=== PATIENT | female | born 1945 | race Caucasian/White ===

== ENCOUNTER 2019-06-20 10:30 | Inpatient (IN) | payer MEDICARE, MEDICAID ==
[~2019-06-20] VITALS: Ht 142.2 cm; Wt 97.8 kg
[2019-06-20] MEDS ORDERED: FUROSEMIDE 40MG/4ML VIAL IVP ONE (17:00)
[2019-06-20] MEDS ORDERED: ONDANSETRON HCL 4MG/2ML INJ IV PRN (17:00)
[2019-06-20 17:27] LABS: BASOPHILS % 0.4 % (0.0-2.0); EOSINOPHILS % 0.3 % (0.0-5.0); HEMATOCRIT. 36.3 % (36.0-48.0); LYMPHOCYTES % 12.3 % (20.0-50.0); MEAN CORPUSCULAR HEMOGLOBIN 29.1 pg (28.0-32.0); MEAN CORPUSCULAR VOLUME 88.3 fL (81.0-99.0); MEAN PLATELET VOLUME 8.9 fl (7.4-10.4); PLATELET 240 x1000/uL (130-400); RED BLOOD CELL COUNT 4.11 mill/uL (4.2-5.4); RED CELL DISTRIBUTION WIDTH 16.5 % (11.6-14.6)
[2019-06-20 17:36] LABS: INR 1.1; PROTHROMBIN TIME 11.4 sec (9.6-11.0)
[2019-06-20 17:44] LABS: CHLORIDE 101 mEq/L (98-107)
[2019-06-20] MEDS ORDERED: DOXYCYCLINE HYCLATE 100 MG/VIAL IV ONE (17:45)
[2019-06-20] MEDS ORDERED: CEFTRIAXONE 1 G PREMIX 50 ML IV ONE (17:45)
[2019-06-20] MEDS ORDERED: METRONIDAZOLE 500 MG PREMIX 100 ML IV NR (18:00)
[2019-06-20] MEDS ORDERED: MORPHINE SULFATE 4 MG/ML CPJ (NOT FOR IM USE) IV ONE (18:00)
[2019-06-20] MEDS ORDERED: MORPHINE SULFATE 2 MG/ML CPJ (NOT FOR IM USE) IV PRN ×2 (18:15)
[2019-06-20] MEDS ORDERED: DOXYCYCLINE 100MG in DEXTROSE 5% WATER 100ML IV NR (19:30)
[2019-06-20] MEDS ORDERED: HEPARIN 5000 UNITS/ML VIAL SUBCUT SCH (21:00)
[2019-06-20] MEDS ORDERED: PIPERACILLIN/TAZ 3.375G PREMIX 50 ML IV SCH (23:45)
[2019-06-21] MEDS ORDERED: PIPERACILLIN/TAZOBACTAM 3.375GM/50ML PREMIX IV SCH
[2019-06-21] MEDS: HEPARIN 5000 UNITS/ML VIAL SUBCUT SCH ×2 (02:49→09:07)
[2019-06-21] MEDS ORDERED: DEXTROSE 50% WATER 50ML SYRINGE IV PRN (05:15)
[2019-06-21] MEDS ORDERED: INSULIN LISPRO 100 UNITS/ML SUBCUT NR (05:30)
[2019-06-21 06:30] VITALS: BP 103/47
[2019-06-21 08:00] VITALS: BP_SYST 135; BP_DIAS 4; BP_DIAS 43; BP_DIAS 46
[2019-06-21] MEDS ORDERED: FUROSEMIDE 40MG/4ML VIAL IVP SCH (09:00)
[2019-06-21] MEDS: PIPERACILLIN/TAZOBACTAM 3.375 G in DEXT 5% WATER 100 ML IV SCH ×3 (09:06→17:52)
[2019-06-21 11:02] LABS: BASOPHILS % 0.8 % (0.0-2.0); EOSINOPHILS % 0.1 % (0.0-5.0); HEMATOCRIT. 33.3 % (36.0-48.0); HEMOGLOBIN. 10.8 g/dL (12.0-16.0); LYMPHOCYTES % 10.6 % (20.0-50.0); MEAN CORPUSCULAR HEMOGLOBIN 28.8 pg (28.0-32.0); MEAN CORPUSCULAR VOLUME 88.3 fL (81.0-99.0); MEAN PLATELET VOLUME 9.3 fl (7.4-10.4); NEUTROPHILS % 83.5 % (40.0-76.0); PLATELET 225 x1000/uL (130-400); RED BLOOD CELL COUNT 3.77 mill/uL (4.2-5.4); RED CELL DISTRIBUTION WIDTH 16.2 % (11.6-14.6)
[2019-06-21 11:16] LABS: CHLORIDE 100 mEq/L (98-107)
[2019-06-21 12:00] VITALS: BP_SYST 106; BP_SYST 108; BP_DIAS 35; BP_DIAS 37
[2019-06-21] MEDS: BLOOD SUGAR DIAGNOSTIC STRIP TEST SCH ×2 (12:00→17:00)
[2019-06-21] MEDS: INSULIN LISPRO 100 UNITS/ML SUBCUT SCH ×2 (12:21→17:53)
[2019-06-21] MEDS: FUROSEMIDE 40MG/4ML VIAL IVP SCH (12:29)
[2019-06-21] MEDS: LOSARTAN POTASSIUM 25 MG TABLET PO SCH (12:29)
[2019-06-21] MEDS: ACETAMINOPHEN 325MG TABLET PO PRN (12:58)
[2019-06-21 16:00] VITALS: BP 108/37
[2019-06-21 18:06] VITALS: BP 135/43
[2019-06-21 20:00] VITALS: BP 125/35
[2019-06-21] MEDS ORDERED: PNEUMOCOCCAL 23-VAL P-SAC VAC 0.5 ML IM ONE (20:45)
[2019-06-21] MEDS ORDERED: INFLUENZA VIRUS VACCINE(AFLURIA) 0.5ML SYR IM ONE (20:45)
[2019-06-22] VITALS: BP 99/28
[2019-06-22] MEDS: PIPERACILLIN/TAZOBACTAM 3.375 G in DEXT 5% WATER 100 ML IV SCH ×5 (00:02→23:58)
[2019-06-22] MEDS: BLOOD SUGAR DIAGNOSTIC STRIP TEST SCH ×5 (00:10→23:58)
[2019-06-22] MEDS: HEPARIN 5000 UNITS/ML VIAL SUBCUT SCH ×3 (00:19→22:03)
[2019-06-22] MEDS: INSULIN LISPRO 100 UNITS/ML SUBCUT SCH ×4 (01:58→18:29)
[2019-06-22] MEDS ORDERED: INSULIN LISPRO 100 UNITS/ML SUBCUT SCH (02:00)
[2019-06-22 04:00] VITALS: BP 98/31
[2019-06-22] MEDS ORDERED: INSULIN GLARGINE UD 100 UNITS/ML SYR SUBCUT SCH (04:00)
[2019-06-22 06:37] LABS: CHLORIDE 99 mEq/L (98-107)
[2019-06-22 06:40] LABS: BASOPHILS % 0.9 % (0.0-2.0); EOSINOPHILS % 0.9 % (0.0-5.0); LYMPHOCYTES % 17.4 % (20.0-50.0); MEAN CORPUSCULAR VOLUME 87.2 fL (81.0-99.0); MEAN PLATELET VOLUME 9.2 fl (7.4-10.4); NEUTROPHILS % 74.8 % (40.0-76.0); PLATELET 223 x1000/uL (130-400); RED BLOOD CELL COUNT 3.44 mill/uL (4.2-5.4)
[2019-06-22 06:56] LABS: LDL CHOLESTEROL 45 mg/dL (5-100)
[2019-06-22 06:57] LABS: HDL CHOLESTEROL 31 mg/dL (40-59)
[2019-06-22] MEDS ORDERED: INSU100I28 SQ (07:31)
[2019-06-22 08:00] VITALS: BP 130/46
[2019-06-22] MEDS: FUROSEMIDE 40MG/4ML VIAL IVP SCH (09:05)
[2019-06-22] MEDS: LOSARTAN POTASSIUM 25 MG TABLET PO SCH (09:05)
[2019-06-22 12:00] VITALS: BP 142/37
[2019-06-22 16:42] VITALS: BP 135/59
[2019-06-22] MEDS: ACETAMINOPHEN 325MG TABLET PO PRN (18:27)
[2019-06-22 20:00] VITALS: BP 119/49
[2019-06-22] MEDS: INSULIN GLARGINE UD 100 UNITS/ML SYR SUBCUT SCH (22:01)
[2019-06-23] VITALS: BP 128/50
[2019-06-23] MEDS ORDERED: INSULIN LISPRO 100 UNITS/ML SUBCUT SCH (00:15)
[2019-06-23] MEDS ORDERED: DEXTROSE 50% WATER 50ML SYRINGE IV PRN (00:15)
[2019-06-23] MEDS: PIPERACILLIN/TAZOBACTAM 3.375 G in DEXT 5% WATER 100 ML IV SCH ×3 (06:24→18:00)
[2019-06-23 06:35] LABS: CHLORIDE 99 mEq/L (98-107)
[2019-06-23 07:21] LABS: BASOPHILS % 0.8 % (0.0-2.0); EOSINOPHILS % 1.8 % (0.0-5.0); HEMATOCRIT. 33.5 % (36.0-48.0); HEMOGLOBIN. 11.3 g/dL (12.0-16.0); LYMPHOCYTES % 22.3 % (20.0-50.0); MEAN CORPUSCULAR HEMOGLOBIN 29.3 pg (28.0-32.0); MEAN PLATELET VOLUME 8.9 fl (7.4-10.4); MONOCYTES % 7.8 % (2.0-8.0); NEUTROPHILS % 67.3 % (40.0-76.0); PLATELET 238 x1000/uL (130-400); RED BLOOD CELL COUNT 3.85 mill/uL (4.2-5.4)
[2019-06-23 08:00] VITALS: BP 133/88
[2019-06-23] MEDS: BLOOD SUGAR DIAGNOSTIC STRIP TEST SCH ×3 (08:15→16:57)
[2019-06-23] MEDS: LOSARTAN POTASSIUM 25 MG TABLET PO SCH (08:32)
[2019-06-23] MEDS: INSULIN LISPRO 100 UNITS/ML SUBCUT SCH ×3 (08:41→18:26)
[2019-06-23] MEDS: INSULIN GLARGINE UD 100 UNITS/ML SYR SUBCUT SCH (10:20)
[2019-06-23] MEDS: HEPARIN 5000 UNITS/ML VIAL SUBCUT SCH (11:32)
[2019-06-23 12:00] VITALS: BP 119/34
[2019-06-23] MEDS ORDERED: POTASSIUM CHLORIDE 20MEQ/PACKET PO NR (13:00)
[2019-06-23 13:05] LABS: TOTAL IRON BINDING CAPACITY 244 ug/dL (250-450)
[2019-06-23] MEDS ORDERED: INSU100I28 SQ (13:35)
[2019-06-23] MEDS ORDERED: CIPR-263 MT (13:35)
[2019-06-23] MEDS ORDERED: METR500T MT (13:35)
[2019-06-23 16:47] VITALS: BP 133/49
[2019-06-23] MEDS ORDERED: INSULIN GLARGINE UD 100 UNITS/ML SYR SUBCUT SCH (22:00)
== END 2019-06-23 19:15 | DRG 291 ==
LOC: ER 10:30 → 6WST 17:47 → EDBEDREQ 17:55 → EDBEDREQSVC 17:56 → EDBEDREQ 17:56 → EDBEDREQTM 17:56 → ENRESERV 06-21 03:16
PROVIDERS: ADMIT Family Medicine Adult Medicine; ATTEND Family Medicine Adult Medicine
DX: I13.0 Hypertensive heart and chronic kidney disease with heart failure and stage 1 through stage 4 chronic kidney disease, or unspecified chronic kidney disease (principal); I50.23 Acute on chronic systolic (congestive) heart failure; Z68.42 Body mass index [BMI] 45.0-49.9, adult; K52.9 Noninfective gastroenteritis and colitis, unspecified; E11.65 Type 2 diabetes mellitus with hyperglycemia; J44.9 Chronic obstructive pulmonary disease, unspecified; E66.01 Morbid (severe) obesity due to excess calories; E87.6 Hypokalemia; D64.9 Anemia, unspecified; N18.9 Chronic kidney disease, unspecified; N26.1 Atrophy of kidney (terminal); I70.0 Atherosclerosis of aorta; E11.22 Type 2 diabetes mellitus with diabetic chronic kidney disease; I70.8 Atherosclerosis of other arteries; N20.0 Calculus of kidney; Z79.4 Long term (current) use of insulin; Z86.73 Personal history of transient ischemic attack (TIA), and cerebral infarction without residual deficits; Z87.891 Personal history of nicotine dependence; Z90.49 Acquired absence of other specified parts of digestive tract
CPT/HCPCS: 36415; 71045; 74176; 80048; 80053; 80061; 80076; 82248; 82270; 82728; 82962; 83036; 83540; 83550; 83605; 83735; 83880; 84145; 84443; 84484; 85025; 85379; 87804; 93005; 93306; 93970; 96365; 96367; 96368; 96372; 99285; A6261; C1893; J0696; J1644; J1815; J1940; J2270; J2405; J2543; J3490; J7040; J7060